=== PATIENT | female | born 1980 | race Caucasian/White ===

== ENCOUNTER 2020-12-04 11:59 | Emergency (ER) | payer OTHER ==
[~2020-12-04] VITALS: Ht 162.6 cm; Wt 71.0 kg
--- NOTE | 2020-12-04 12:05 | NUR ---
CALLED FOR TRIAGE, NO ANSWER
[2020-12-04 12:30] LABS: BASOPHILS % (AUTO) 0 % (0-1); EOSINOPHILS % (AUTO) 0 % (1-7); LYMPHOCYTES % (AUTO) 4 % (22-44); MEAN CORPUSCULAR HEMOGLOBIN 27.6 pg (27.0-34.8); MEAN CORPUSCULAR HGB CONC 33.3 g/dL (32.4-35.8); MEAN PLATELET VOLUME 8.8 fL (7.4-10.4); MONOCYTES % (AUTO) 3 % (2-9); NEUTROPHILS % (AUTO) 93 % (42-75); PLATELET COUNT 400 x10^3/uL (130-400); RED BLOOD COUNT 4.62 x10^6/uL (3.82-5.3); RED CELL DISTRIBUTION WIDTH 14.2 % (9.6-15.2)
[2020-12-04 12:43] LABS: ANION GAP 8 mmol/L (5-15); CALCIUM 9.3 mg/dL (8.5-10.1); CHLORIDE 106 mmol/L (98-107)
[2020-12-04] MEDS ORDERED: OMNIPAQUE 350 MG/ML, 100ML BOTTLE ONE (12:44)
[2020-12-04 12:45] LABS: MD SCAN
[2020-12-04 12:46] LABS: MICROSCOPIC INDICATED
[2020-12-04 12:49] LABS: ALANINE AMINOTRANSFERASE 33 U/L (12-78); ALKALINE PHOSPHATASE 50 U/L (45-117); BILIRUBIN,TOTAL 0.7 mg/dL (0.2-1.0); CREATININE 0.87 mg/dL (0.55-1.02); TOTAL PROTEIN 8.8 g/dL (6.4-8.2)
--- NOTE | 2020-12-04 13:10 | NUR ---
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
--- NOTE | 2020-12-04 13:12 | NUR ---
PATIENT WHEELED BACK FROM LOBBY WITH CHIEF C/O ABD PAIN, N/V/D SINCE 2100 LAST NIGHT. PER PATIENT "I HAVE A DIAGNOSIS OF MICROSCOPIC COLITIS." PATIENT IS MOANING, ONE EPISODE OF DRY HEAVING DURING ASSESSMENT. VSS, SIGNIFICANT OTHER AT BEDSIDE, CALL LIGHT WITHIN REACH.
--- NOTE | 2020-12-04 13:46 | NUR ---
WARM BLANKET PROVIDED, NADN, VSS, SIGNIFICANT OTHER AT BEDSIDE, CALL LIGHT WITHIN REACH. PATIENT UP FOR RECHECK.
--- NOTE | 2020-12-04 13:48 | NUR ---
ERMD AT BEDSIDE FOR EVALUATION.
[2020-12-04] MEDS ORDERED: SODIUM CHLORIDE 0.9% 1,000ML IVBOLUS ONE (14:30)
[2020-12-04] MEDS ORDERED: ONDANSETRON 2MG/ML, 2ML IVPush ONE (14:30)
[2020-12-04] MEDS ORDERED: SODIUM CHLORIDE FLUSH 10ML SYR IVF ONE (14:30)
[2020-12-04] MEDS ORDERED: MORPHINE SULFATE 4 MG/ML, 1ML IVPush PRN (14:30)
[2020-12-04] MEDS ORDERED: MORPHINE SULFATE 4 MG/ML, 1ML ONE (14:40)
[2020-12-04] MEDS ORDERED: ONDANSETRON 2MG/ML, 2ML ONE (14:40)
--- NOTE | 2020-12-04 14:48 | NUR ---
BREAK RN: PT AMB TO AND FROM BR, GAIT STEADY. WHEN PT RETURN TO ROOM, PT WITH CONSTANT MOANS. ENC PT TO USE RELAXATION BREATHING. IV STARTED, NS INFUSING WITHOUT REDNESS/SWELLING. PT MEDICATED FOR NAUSEA AND PAIN ORDERED. PT AWARE OF CT ORDER. FAMILY AT BEDSIDE. NO OTHER NEEDS EXPRESSED.
--- NOTE | 2020-12-04 14:54 | NUR ---
REPORT TO MASHA SCHNEIDER.
--- NOTE | 2020-12-04 15:05 | NUR ---
PATIENT TO CT SCAN.
[2020-12-04 16:14] VITALS: BP 117/69
[2020-12-04] MEDS ORDERED: PROMETHAZINE 25 MG/ML, 1ML IM ONE (17:00)
[2020-12-04] MEDS ORDERED: PROMETHAZINE 25 MG/ML, 1ML ONE (17:02)
--- NOTE | 2020-12-04 17:08 | NUR ---
Patient given discharge instructions and prescriptions and they have confirmed that they understand the instructions. Patient stable and ambulatory with steady gait from ED to private vehicle with significant other at side.
== END 2020-12-04 17:09 | disposition home or self-care (01) ==
LOC: ED 17:03
DX: R11.2 Nausea with vomiting, unspecified (principal); R19.7 Diarrhea, unspecified; R10.33 Periumbilical pain
CPT/HCPCS: 36415; 74177; 80053; 81001; 83690; 84703; 85025; 87086; 96361; 96372; 96374; 96375; 99285; J2270; J2405; J2550; J7030; Q9967

== ENCOUNTER 2020-12-06 01:05 | Emergency (ER) | payer OTHER ==
[~2020-12-06] VITALS: Ht 162.6 cm; Wt 75.0 kg
[2020-12-06 01:15] VITALS: BP 131/73
--- NOTE | 2020-12-06 01:23 | NUR ---
PT BIB [facility] FOR EPIGASTRIC ABD PAIN, N/V X 2 DAYS. WAS SEEN HERE RECENTLY FOR SAME AND DISCHARGED. 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 EKG DONE ON ARRIVAL TO ED. PT ATTACHED TO BP AND SPO2 MONITORS. PT MOANING IN PAIN ON BED. PT STATES SHE IS HERE VISTING WITH HER BOYFRIEND FROM [place].
[2020-12-06] MEDS ORDERED: FAMOTIDINE 20 MG/2 ML ONE (01:27)
[2020-12-06] MEDS ORDERED: SODIUM CHLORIDE FLUSH 10ML SYR IVF ONE (01:30)
[2020-12-06] MEDS ORDERED: FAMOTIDINE 20 MG/2 ML IVPush ONE (01:30)
[2020-12-06] MEDS ORDERED: PROMETHAZINE 25 MG/ML, 1ML IM ONE (01:30)
[2020-12-06] MEDS ORDERED: MORPHINE SULFATE 4 MG/ML, 1ML IVPush PRN (01:30)
[2020-12-06 01:37] LABS: BASOPHILS % (AUTO) 1 % (0-1); EOSINOPHILS % (AUTO) 0 % (1-7); LYMPHOCYTES % (AUTO) 14 % (22-44); MEAN CORPUSCULAR HEMOGLOBIN 28.2 pg (27.0-34.8); MEAN CORPUSCULAR HGB CONC 33.9 g/dL (32.4-35.8); MEAN PLATELET VOLUME 8.6 fL (7.4-10.4); MONOCYTES % (AUTO) 9 % (2-9); NEUTROPHILS % (AUTO) 77 % (42-75); PLATELET COUNT 323 x10^3/uL (130-400); RED BLOOD COUNT 4.48 x10^6/uL (3.82-5.3); RED CELL DISTRIBUTION WIDTH 14.6 % (9.6-15.2)
[2020-12-06 01:40] LABS: MD NO
--- NOTE | 2020-12-06 01:41 | NUR ---
REPORT TO PRIMARY RN FLOR
[2020-12-06 01:48] LABS: ALBUMIN 4.3 g/dL (3.4-5.0); ANION GAP 7 mmol/L (5-15); CALCIUM 8.9 mg/dL (8.5-10.1); CHLORIDE 103 mmol/L (98-107)
[2020-12-06 01:52] LABS: ALANINE AMINOTRANSFERASE 31 U/L (12-78); ALKALINE PHOSPHATASE 44 U/L (45-117); BILIRUBIN,TOTAL 0.5 mg/dL (0.2-1.0); CREATININE 0.69 mg/dL (0.55-1.02); TOTAL PROTEIN 7.8 g/dL (6.4-8.2)
--- NOTE | 2020-12-06 01:57 | NUR ---
PT SLEEPING AND IN NO ACUTE DISTRESS AT THIS TIME.
[2020-12-06] MEDS ORDERED: POTASSIUM CHLORIDE 20 MEQ TAB.ER.PRT PO ONE (02:00)
[2020-12-06] MEDS ORDERED: POTASSIUM CHLORIDE 20 MEQ TAB.ER.PRT ONE (02:07)
[2020-12-06] MEDS ORDERED: DICYCLOMINE 10 MG/ML, 2ML ONE (02:10)
[2020-12-06] MEDS ORDERED: METOCLOPRAMIDE 5 MG/ML, 2ML ONE (02:13)
[2020-12-06] MEDS ORDERED: DICYCLOMINE 10 MG/ML, 2ML IM ONE (02:30)
[2020-12-06] MEDS ORDERED: METOCLOPRAMIDE 5 MG/ML, 2ML IV ONE (02:30)
--- NOTE | 2020-12-06 02:30 | NUR ---
PT MEDICATED PER EMAR. TOLERATED WELL. AND F/U AND D/C INSTRUCTIONS GIVEN TO PT AND SHE V/U.
== END 2020-12-06 03:08 | disposition home or self-care (01) ==
LOC: ED 01:19
DX: R10.84 Generalized abdominal pain (principal); R11.2 Nausea with vomiting, unspecified
CPT/HCPCS: 36415; 80053; 80320; 83690; 85025; 93005; 96372; 96374; 96375; 99284; J0500; J2765; G0480